=== PATIENT | male | born 1935 | race Caucasian/White ===

== ENCOUNTER → 2018-02-16 16:51 | Outpatient (CLI) | payer MEDICARE ==
[2016-01-14 16:02] VITALS: BMI 37.1
[~2018-02-16 16:51] MED LIST: ALDACTONE25 MG PO; ASPIRIN325 MG PO; ASPIRIN81 MG PO; COLACE100 MG PO; CORDARONE200 MG PO; GLUCOPHAGE500 MG PO; IPRAT-ALBUT 0.5-3 ML INH; LASIX40 MG PO; LEVAQUIN750 MG PO; LIPITOR10 MG PO; NORVASC10 MG PO; OXYBUTYNIN CHLOR5 MG PO; PROTONIX40 MG PO; SENOKOT-S TABLE1 TAB PO; TOPROL XL25 MG; ULTRAM50 MG PO; UNITHROID25 MCG; UNITHROID25 MCG PO
[2018-02-16 17:17] LABS: ANION GAP 12.9 mmol/L (8-16); CALCIUM 8.5 mg/dL (8.5-10.1); CARBON DIOXIDE 28.5 mmol/L (21.0-32.0); CREATININE - SERUM 1.9 mg/dL (0.6-1.3); POTASSIUM - SERUM 4.4 mmol/L (3.5-5.1)
== END | disposition home or self-care (01) ==
LOC: D.LABREF 16:51
PROVIDERS: Nurse Practitioner
DX: I10 Essential (primary) hypertension (principal)

== ENCOUNTER → 2021-02-06 09:54 | Outpatient (CLI) | payer MEDICARE ==
[2016-01-14 16:02] VITALS: BMI 37.1
== END | disposition home or self-care (01) ==
LOC: D.HCCECHO 09:54
PROVIDERS: ATTEND Internal Medicine Cardiovascular Disease
DX: I25.10 Atherosclerotic heart disease of native coronary artery without angina pectoris (principal)